=== PATIENT | male | born 1985 | race Caucasian/White ===

== ENCOUNTER 2018-12-05 17:43 | Emergency (ER) | payer SELFPAY ==
[~2018-12-05] VITALS: Ht 177.8 cm; Wt 77.0 kg
[2018-12-05] MEDS ORDERED: ONDANSETRON 4MG ODT PO ONE (23:00)
[2018-12-06] MEDS ORDERED: ONDANSETRON HCL 4MG/2ML INJ IM ONE (03:45)
[2018-12-06] MEDS ORDERED: ONDANSETRON 4MG ODT PO ONE (03:45)
[2018-12-06 05:19] VITALS: BP 115/68
== END 2018-12-06 05:44 | disposition home or self-care (01) ==
LOC: ER 18:00
DX: R11.2 Nausea with vomiting, unspecified (principal); R10.32 Left lower quadrant pain
CPT/HCPCS: 74021; 96372; 99283; J2405; Q0162; Z7610